=== PATIENT | male | born 1935 | race Caucasian/White ===

== ENCOUNTER → 2019-08-22 10:36 | Outpatient (CLI) | payer MEDICARE, OTHER, SELFPAY ==
--- NOTE | 2019-08-22 10:48 | RAD_ITS ---
STUDY: X-RAY - LEFT KNEE REASON FOR EXAM: Male, 84 years old. Left knee pain TECHNIQUE: 4 view(s) of the knee. COMPARISON: None. FINDINGS: There is demineralization of the visualized distal femur. There is demineralization of the tibia and fibula. Normal proximal tibiofibular articulation. There is mild degenerative arthrosis of the medial femorotibial compartment. There is mild degenerative arthrosis of the lateral femorotibial compartment. There is mild degenerative arthrosis of the patellofemoral articulation. There are atherosclerotic calcifications. RAD/Knee 4 or More Views IMPRESSION: Mild degenerative change no visualized fracture. Electronically Signed: Katia Gama MD at 18:01 EST Tel , Service support ,
[2019-08-22 12:51] LABS: Anion Gap 4 (5-15); BUN 11 mg/dL (7-18); BUN/Creat Ratio 11.2 RATIO (10-20); Calcium,Total 8.9 mg/dL (8.5-10.1); Chloride 106 mmol/L (98-107); Cholesterol 241 mg/dL (200); Creatinine, Serum 0.98 mg/dL (0.70-1.30); EST Glomerular Filtration Rate 78 mL/min (>60); Est Glom Filt Rate - Afr Amer 94 mL/min (>60); Glucose 90 mg/dL (74-106); High Density Lipoprotein 88 mg/dL; Potassium 4.1 mmol/L (3.5-5.1); Sodium Level 140 mmol/L (136-145); Triglycerides 67 mg/dL; Very Low Density Lipoprotein 13 mg/dL (5-40)
== END ==
PROVIDERS: PCP Family Medicine; Referring Provider Family Medicine; Visit Provider Family Medicine
DX: M79.605 Pain in left leg (principal); E78.00 Pure hypercholesterolemia, unspecified; Z13.1 Encounter for screening for diabetes mellitus; Z13.220 Encounter for screening for lipoid disorders
CPT/HCPCS: 36415; 73564; 80048; 80061

== ENCOUNTER 2021-02-20 20:50 | Inpatient (IN) | payer MEDICARE, OTHER, SELFPAY ==
[2021-02-20 20:51] VITALS: BP 129/67; PULSE 76; RESP 28; TEMP 36.2; O2SAT 87; BMI 21.2
[2021-02-20 20:56] VITALS: O2SAT 92
--- NOTE | 2021-02-20 21:56 | EKG12_ITS ---
Test Reason : SYNCOPE Blood Pressure : / mmHG Vent. Rate : 062 BPM Atrial Rate : 062 BPM P-R Int : 192 ms QRS Dur : 096 ms QT Int : 460 ms P-R-T Axes : 054 008 065 degrees QTc Int : 466 ms Normal sinus rhythm Normal ECG Confirmed by KRISTYN PEÑA, LINDA ([id number]), medical transcription editor CIELO MANCILLA ([id number]) on 02/22/2021 9:27:41 AM Referred By: DAVY Confirmed By:LINDA SIMONS MD
--- NOTE | 2021-02-20 21:56 | RAD_ITS ---
STUDY: X-RAY CHEST REASON FOR EXAM: Male, 85 years old. syncope TECHNIQUE: Single AP portable view of the chest. COMPARISON: None. FINDINGS: The lungs are clear and expanded. There is no demonstrated pleural abnormality. Normal size heart. Normal mediastinum and james. Normal visualized pulmonary arteries. Normal visualized aortic arch and descending thoracic aorta. Normal visualized thoracic spine. Normal visualized ribs, clavicles, and shoulders. There is no demonstrated abnormality of the visualized soft tissue structures of the upper abdomen. RAD/Chest 1 View (Portable) IMPRESSION: Normal x-ray examination of the chest. Electronically Signed: Florence Jeffries MD at 23:57 EDT Tel , Service support ,
--- NOTE | 2021-02-20 21:57 | EX.ED.DYSGE1 ---
HPI History of Present Illness Chief Complaint: Syncope Informant: patient Narrative Narrative: 85-year-old male presents to the emergency room following a syncopal episode. Patient had a dinner went outside to mow some lawn for his new puppy. He states that as he mowed he began to feel lightheaded. He states he was down by his shed and he states he passed out. His came up and found him. She states that he was pale and sweaty. He denies any chest pain or palpitations. He denies any shortness of breath he simply stated that he felt lightheaded. He does not believe he injured himself in the fall [facility] Medical History High cholesterol Allergy/AdvReac Type Severity Reaction Status Date / Time No Known Allergies Allergy Verified 02/20/21 20:54 Surgical History History of hernia surgery Social History (Updated 02/20/21 @ 21:[address] Dar Stevenson DO) Smoking Status: Never smoker substance use type: does not use ROS ROS ED Constitutional Constitutional ED: Denies chills or weight loss Eyes Eyes: Denies change in vision or diplopia ENT ENT ED: Denies ear pain, rhinorrhea or sore throat Cardiovascular Cardiovascular: Denies chest pain, orthopnea, palpitations or racing heartbeat Respiratory/Chest Respiratory/Chest: Denies cough, dyspnea or orthopnea Gastrointestinal Gastrointestinal: Denies abdominal pain, diarrhea, nausea or vomiting Genitourinary Genitourinary ED: Denies dysuria, hematuria or urinary frequency Musculoskeletal Musculoskeletal: Denies arthralgias or myalgias Integumentary Denies abscess or rash Neurologic Neurologic: Denies headache(s) or weakness Psychiatric Psychiatric: Denies anxiety, depression, suicidal ideation or suicidal thoughts Endocrine Endocrinology: Denies polydipsia, polyphagia or polyuria Allergic/Immunologic Allergic/Immunologic ED: Denies mouth swelling, tongue swelling or urticaria EXAM Physical Exam Const Vital Signs: 02/20/21 20:51 02/20/21 20:56 02/20/21 21:18 Temperature 97.2 F L Temperature Source Temporal Pulse Rate 76 Respiratory Rate 28 H Respiratory Effort Normal Non-Labored Blood Pressure 129/67 H Blood Pressure Mean 87 Pulse Ox 87 92 Oxygen Delivery Method Room Air Nasal Cannula Oxygen Flow Rate (L/min) 2 02/21/21 00:00 Temperature Temperature Source Pulse Rate 77 Respiratory Rate 20 H Respiratory Effort Blood Pressure 118/70 Blood Pressure Mean 86 Pulse Ox 100 Oxygen Delivery Method Oxygen Flow Rate (L/min) Positive well nourished and well developed General Appearance ED: well developed HEENT Reports normocephalic, head/scalp atraumatic and moist mucous membranes Eyes PERRL and EOMs intact bilaterally Neck no lymphadenopathy, supple and no JVD Resp normal respiratory effort and clear to auscultation bilaterally Cardio regular rate, regular rhythm and no murmurs GI normal to inspection, nondistended, normoactive bowel sounds and non-tender Palpation: soft Back/Spine no CVA tenderness and normal ROM Extremity normal to inspection General Extremety ED: Negative for edema General Extremity: Negative for edema Neuro oriented x3 and CN's II-XII intact bilaterally Sensorium / Orientation: alert Motor Exam: strength 5/5 throughout Psych mental status grossly normal Mood & Affect: Negative for depressed or tearful Skin no rashes or lesions noted and no wounds MDM MDM MDM Narrative Medical decision making narrative: Patient was watched on the monitor for over 3 hours. He has had no events. His EKG is a normal sinus rhythm. Initial troponin 13.1. D-dimer significantly elevated at 5.28 and so a CTA of the chest was ordered. Lab Data Attestation: I reviewed the patient's lab results. Labs: Laboratory Results - last 24 hr 02/20/21 02/20/21 02/20/21 20:30 20:30 22:20 WBC 9.7 RBC 4.42 L Hgb 13.4 Hct 40.3 MCV 91.2 MCH 30.3 MCHC 33.3 RDW Std Deviation 41.5 RDW Coeff of Brenda 12.4 Plt Count 328 MPV 10.4 Immature Gran % (Auto) 0.500 Neut % (Auto) 51.3 Lymph % (Auto) 35.2 [place] % (Auto) 8.7 Eos % (Auto) 3.3 Baso % (Auto) 1.0 Absolute Neuts (auto) 5.0 Absolute Lymphs (auto) 3.41 Nucleated RBC % 0 D-Dimer Quant (PE/DVT) 5.28 H* Sodium 135 L Potassium 3.0 L Chloride 100 Carbon Dioxide 21.0 Anion Gap 14 BUN 14 Creatinine 1.37 H Estim Creat Clear Calc 30.34 Est GFR (MDRD) Af Amer 64 Est GFR (MDRD) Non-Af 53 L BUN/Creatinine Ratio 10.2 Glucose 157 H Calcium 8.4 L Total Bilirubin 0.40 AST 21 ALT 19 Alkaline Phosphatase 89 Troponin I High Sens 13.1 Total Protein 6.9 Albumin 3.7 Globulin 3.2 Albumin/Globulin Ratio 1.2 Radiography Diagnostic Testing: Radiology Impression Chest X-Ray 02/20/21 21:56 IMPRESSION: Normal x-ray examination of the chest. Electronically Signed: Florence Jeffries MD at 23:57 EDT Tel , Service support , EKG Initial EKG: Attestation: I personally reviewed and interpreted this EKG as follows: Comments: EKG shows a normal sinus rhythm at a rate of 62 bpm. No concerning features of ACS or ectopy. No preexcitation or prolonged QT noted Discharge Plan Triage Chief Complaint: Syncope ED Provider: Dar Stevenson Dx/Rx/DC Orders Clinical Impression: Syncope and collapse Instructions: ED Fainting, Uncertain Cause Primary Care Provider: Giovany Villagran Referrals: Giovany Villagran MD [Primary Care Provider] - As soon as possible Disposition Disposition: Home, Self Care
[2021-02-20] MEDS: 0.9% Normal Saline 1,000 ML 1000 ML IV (22:11)
[2021-02-20 22:12] LABS: Absolute Lymphocyte Count 3.41 X10^3/uL (0.83-4.51); Eosinophil# 0.32 X10^3/uL; Eosinophils% 3.3 % (0-5); Hematocrit 40.3 % (40-54); Hemoglobin 13.4 g/dL (13.0-16.5); Lymphocyte # 3.41 X10^3/ul (0.83-4.51); Lymphocyte % 35.2 % (19-41); Mean Corp Hgb Conc 33.3 g/dL (32-36); Mean Corpuscular Hgb 30.3 pg (27.0-32.0); Mean Corpuscular Volume 91.2 fL (80-94); Mean Platelet Vol. 10.4 fl (6.2-12.0); Monocyte# 0.84 X10^3/uL; Monocyte% 8.7 % (0-10); NRBC Flagged by Analyzer 0 % (0-5); Neutrophil # 4.97 X10^3/uL (2.7-7.7); Neutrophil % 51.3 % (47-70); Platelet Count 328 K/mm3 (150-450); RBC Distribution Width CV 12.4 % (11.6-14.6); RBC Distribution Width SD 41.5 fl (35.1-43.9); Red Blood Count 4.42 M/mm3 (4.6-6.2); White Blood Count 9.7 K/mm3 (4.4-11.0)
[2021-02-20 22:22] LABS: ALB/GLOB Ratio 1.2 RATIO (0.9-2.4); AST(SGOT) 21 U/L (15-37); Alanine Aminotransfer ALT/SGPT 19 U/L (16-61); Albumin, Serum 3.7 g/dL (3.2-5.0); Alkaline Phosphatase 89 U/L (45-117); Anion Gap 14 (5-15); BUN 14 mg/dL (7-18); BUN/Creat Ratio 10.2 RATIO (10-20); Calcium,Total 8.4 mg/dL (8.5-10.1); Chloride 100 mmol/L (98-107); Creatinine, Serum 1.37 mg/dL (0.70-1.30); EST Glomerular Filtration Rate 53 mL/min (>60); Est Glom Filt Rate - Afr Amer 64 mL/min (>60); Estimated Creatinine Clearance 30.34 ml/min; Globulin 3.2 g/dL (2.2-4.2); Glucose 157 mg/dL (74-106); Protein, Total 6.9 g/dL (6.4-8.2); Sodium Level 135 mmol/L (136-145); Troponin-I HS 13.1 pg/mL (3.0-78.5)
[2021-02-20 23:32] LABS: D-Dimer Quantitative (DVT/PE) 5.28 FEU/ug/m (0.27-0.49)
--- NOTE | 2021-02-20 23:32 | CT_ITS ---
STUDY: CTA CHEST REASON FOR EXAM: Male, 85 years old. pulmonary embolism. Lightheaded, syncope while mowing, found laying behind mower, elevated d-dimer. RADIATION DOSAGE (If Supplied By Facility): CTDIvol = ( 7.7 ) mGy, DLP = ( 180.40 ) mGycm TECHNIQUE: The examination was performed with the intravenous administration of IV 75mL Isovue-370. Post-processing of the angiographic images was performed, with multiplanar reformation and 3D reconstruction. Individualized dose optimization techniques were used for this CT. COMPARISON: Portable chest x-ray 02/20/2021 FINDINGS: Normal enhancement of the main pulmonary artery and right and left pulmonary arteries. Normal enhancement of the bilateral peripheral pulmonary arteries. There is no demonstrated pulmonary embolism. There is calcification/tortuosity of the aortic arch, arch branches and descending thoracic aorta. There is no demonstrated aortic dissection. Normal heart and pericardium. There are calcifications of the coronary arteries. There are aortic valve calcifications. Normal mediastinum. Normal hilar regions. Normal visualized trachea and bronchi. The lungs are hyper expanded, with flattening of the hemidiaphragms. Nonspecific compression along the dependent lung parenchyma, mild anteroseptal thickening in the bilateral upper lung, and likely scarring with possible component of atelectasis in the bilateral bases. Normal pleura. Normal chest wall structures. Age appropriate osseous structures. There is a small hiatal hernia. The liver contains multiple low-attenuation lesions in the right hepatic lobe measuring 4.1 x 3.9 and 1.1 x 1.3 cm with near water density, in the left hepatic lobe 2.1 x 2.2 cm with near water density, there is peripheral increased vascularity along its superior aspect, and a subcentimeter water density lesion all of which are likely cysts. There is cholelithiasis. Small low-attenuation density 0.5 cm along the right lateral peritoneal reflection inferior to the liver. This is incompletely imaged. CT/CTA Chest W/WO Contrast IMPRESSION: No demonstrated pulmonary embolism , aneurysm, leak or arterial dissection. No pulmonary edema, congestive heart failure or confluent pneumonia. Scarring, possible mild atelectasis in the lung bases. Hepatic cysts suspected, correlation to previous assessment, and if needed ultrasound for detail recommended. Cholelithiasis, no gallbladder inflammation. Nodular density in the lateral right abdominal peritoneum of unclear etiology. Correlation with prior assessment for stability of findings performed elsewhere or follow-up recommended. Electronically Signed: Cristiana Patterson MD at 0:28 EDT , Service support ,
[2021-02-21] VITALS (23 sets, daily range): BP systolic 91–140; BP diastolic 47–98; PULSE 57–85; RESP 12–21; TEMP 36.4–37.2; O2SAT 93–100; BMI 20.5
[2021-02-21] MEDS: Potassium Chloride Oral Tablet 20 MEQ 40 MEQ PO (00:11)
--- NOTE | 2021-02-21 03:03 | EKG12_ITS ---
Test Reason : NSTEMI ADMIT Blood Pressure : / mmHG Vent. Rate : 067 BPM Atrial Rate : 067 BPM P-R Int : 172 ms QRS Dur : 078 ms QT Int : 392 ms P-R-T Axes : 065 007 081 degrees QTc Int : 414 ms Normal sinus rhythm Possible LAE Confirmed by CEZAR PEÑA, DALLIN ([id number]), social media editor CIELO MANCILLA ([id number]) on 02/23/2021 10:53:42 AM Referred By: PO Confirmed By:DALLIN ROBB MD
--- NOTE | 2021-02-21 03:20 | PCM.HP.STD ---
HPI - General General Date of Admission: 02/21/21 Date of Service: 02/21/21 Chief Complaint: Syncope HPI Narrative JASWANT DAVIS, is a 85 M with no significant past medical history was brought to ER by EMS for syncope. Patient was mowing in the backyard then he felt warm sensation, nausea and then passed out. He turned off motor of [employer] and his calling his name before passing out. On waking up, patient denies headache and injury but was feeling weak. He might have passed out for few minutes. He denies chest pain, pressure/tightness, shortness of breath. He further said he passed out many years ago when he was in high school wrestling. He denies cardiac disease including coronary artery disease, stents/MS, CHF. He vaguely remembers that many years ago one physician said he has murmur. He denies history of smoking or chronic lung disease. In ER, EKG shows normal sinus rhythm at 96 bpm. QTc 466 ms. First high-sensitivity troponin was normal but second high, 243. D-dimer is elevated but CT angiogram negative for acute cardiopulmonary abnormality. Incidental hepatic cyst and cholelithiasis with no gallbladder inflammation found. [facility] Medical History High cholesterol Allergy/AdvReac Type Severity Reaction Status Date / Time No Known Allergies Allergy Verified 02/21/21 02:52 Surgical History History of hernia surgery Social History Smoking Status: Never smoker substance use type: does not use ROS ROS Narrative Constitutional: Reports mild weakness HEENT: Reports systems reviewed and no addt'l complaints, except as documented Respiratory/Chest: Denies chest pain, shortness of breath at rest or with exertion Gastrointestinal: Denies coffee ground emesis, hematemesis or vomiting Genitourinary: Denies burning urination or new urinary tract symptoms Musculoskeletal: Reports joint pain and limited range of motion Neurologic: Denies seizure-like activity skin: No ulcer. No rash Endocrinology: Reports systems reviewed and no addt'l complaints, except as documented Hematologic/Lymphatic: Reports systems reviewed and no addt'l complaints, except as documented Rest 12 ROS are negative except as mentioned in HPI Vital Signs Vital Signs Vital Signs: 02/20/21 20:51 02/20/21 20:56 02/20/21 21:18 Temperature 97.2 F L Temperature Source Temporal Pulse Rate 76 Respiratory Rate 28 H Respiratory Effort Normal Non-Labored Blood Pressure 129/67 H Blood Pressure Mean 87 Blood Pressure Source Blood Pressure Position Blood Pressure Location Pulse Ox 87 92 Oxygen Delivery Method Room Air Nasal Cannula Oxygen Flow Rate (L/min) 2 02/21/21 00:00 02/21/21 02:00 02/21/21 02:18 Temperature 97.5 F L Temperature Source Temporal Pulse Rate 77 74 Respiratory Rate 20 H 21 H Respiratory Effort Blood Pressure 118/70 131/64 H 131/64 H Blood Pressure Mean 86 86 86 Blood Pressure Source Blood Pressure Position Blood Pressure Location Pulse Ox 100 98 Oxygen Delivery Method Oxygen Flow Rate (L/min) 02/21/21 03:00 Temperature 98.6 F Temperature Source Oral Pulse Rate 77 Respiratory Rate 18 Respiratory Effort Blood Pressure 140/65 H Blood Pressure Mean 90 Blood Pressure Source Monitor Blood Pressure Position Semi-Fowlers Blood Pressure Location Right Arm Pulse Ox 96 Oxygen Delivery Method Nasal Cannula Oxygen Flow Rate (L/min) 2 Weight Weight: 111 lb 15.917 oz Body Mass Index (BMI) 20.5 Physical Exam Narrative General: Alert, Oriented x3, Cooperative HEENT: Atraumatic, PERRLA, EOMI, Normocephalic Oral: No Gingival or Mucosal Lesions/ Ulcerations Neck: Supple, No JVD, Negative Carotid Bruits Lungs: Air entry equal in bilateral lung bases. No crepitation/rhonchi Cardiovascular: Regular rate, Regular Rhythm, Normal S1, Normal S2, ESM, grade 4/6 with carotid radiation, Abdomen: Bowel Sounds Present, Soft, Non Tender, Non-Distended : No renal angle tenderness. No suprapubic tenderness. Extremities: No edema, Capillary Refill Less than 3 Seconds Skin: No rashes, No breakdown Musculoskeletal: No Tenderness to Palpation of Joints or Extremities Neurological: Cranial nerves II-XII grossly intact, DTR 2+/4 and Symmetrical, Neuro grossly intact Psych/Mental Status: Normal Affect, Appropriate. Results Lab / Micro Data Result Diagrams: 02/20/21 20:30 02/20/21 20:30 Labs: Laboratory Results - last 24 hr 02/20/21 20:30: WBC 9.7, RBC 4.42 L, Hgb 13.4, Hct 40.3, MCV 91.2, MCH 30.3, MCHC 33.3, RDW Std Deviation 41.5, RDW Coeff of Brenda 12.4, Plt Count 328, MPV 10.4, Immature Gran % (Auto) 0.500, Neut % (Auto) 51.3, Lymph % (Auto) 35.2, [place] % (Auto) 8.7, Eos % (Auto) 3.3, Baso % (Auto) 1.0, Absolute Neuts (auto) 5.0, Absolute Lymphs (auto) 3.41, Nucleated RBC % 0 02/20/21 20:30: Sodium 135 L, Potassium 3.0 L, Chloride 100, Carbon Dioxide 21.0, Anion Gap 14, BUN 14, Creatinine 1.37 H, Estim Creat Clear Calc 30.34, Est GFR (MDRD) Af Amer 64, Est GFR (MDRD) Non-Af 53 L, BUN/Creatinine Ratio 10.2, Glucose 157 H, Calcium 8.4 L, Total Bilirubin 0.40, AST 21, ALT 19, Alkaline Phosphatase 89, Troponin I High Sens 13.1, Total Protein 6.9, Albumin 3.7, Globulin 3.2, Albumin/Globulin Ratio 1.2 02/20/21 22:20: D-Dimer Quant (PE/DVT) 5.28 H* 02/21/21 00:03: Troponin I High Sens 243.0 H* Radiology Impression Chest X-Ray 02/20/21 21:56 IMPRESSION: Normal x-ray examination of the chest. Electronically Signed: Florence Jeffries MD at 23:57 EDT Tel , Service support , Chest CTA 02/20/21 23:32 IMPRESSION: No demonstrated pulmonary embolism , aneurysm, leak or arterial dissection. No pulmonary edema, congestive heart failure or confluent pneumonia. Scarring, possible mild atelectasis in the lung bases. Hepatic cysts suspected, correlation to previous assessment, and if needed ultrasound for detail recommended. Cholelithiasis, no gallbladder inflammation. Nodular density in the lateral right abdominal peritoneum of unclear etiology. Correlation with prior assessment for stability of findings performed elsewhere or follow-up recommended. Electronically Signed: Cristiana Patterson MD at 0:28 EDT , Service support , Assessment & Plan Assessment/Plan (1) Syncope and collapse: PLAN: Is 85-year-old gentleman admitted with syncope 1. Syncope most probably secondary to non-STEMI, precipitated by aortic stenosis: Patient is not aware of aortic stenosis. Admit in PCU. Serial troponin enzymes. Repeat EKG shows normal sinus rhythm with no ST-T abnormalities. 2D echo is ordered. Medical Clinic Manager Dr. Zaidi has been consulted. Orthostatic blood pressure. I think the aortic stenosis might be precipitating factor of syncope and non-STEMI. Denies history of hypertension, dyslipidemia, smoking or the respiratory. His father had MS in coronary artery disease.PAUL risk score is 2. Started on baby aspirin, high intensity statin, low-dose metoprolol and lisinopril with holding parameters. Further as recommended by digital circuit designer. TSH and fasting blood profile ordered. 2. Patient has good exercise capacity and can walk one flight of stairs and plays 20 hole golf. VT prophylaxis moderate risk: Lovenox 40 subcu daily Living will/advanced directive/end of life care: Patient does have living will or advanced directive. His is power of county attorney for health. After discussion of benefits/risks procedures involved with full code, DNR CC arrest and DNR CC, the patient opted for DNR-CC Arrest with no intubation Patient does not want artificial life support including intubation, tube feed, ventilator and/chest compression, central venous catheter, vasopressor and DC shock if needed Total time spent in [id number] encounter in discussion of advanced directive 16 minutes. Charges/Coding Visit Charges Inpatient E&M: 52068 Init Hosp L3 Procedures Hospitalists Procedures: 35785 Advncd Care Plan 30 Min
[2021-02-21] MEDS: 0.9% Normal Saline 1,000 ML 100 ML IV (03:35)
[2021-02-21] MEDS: 0.9% Saline Lock 10 ML Syringe IV (03:36)
[2021-02-21 04:19] LABS: Magnesium 1.9 mg/dL (1.6-2.6); Troponin-I HS 273.4 pg/mL (3.0-78.5)
[2021-02-21 04:23] LABS: Anion Gap 9 (5-15); BUN 14 mg/dL (7-18); BUN/Creat Ratio 14.3 RATIO (10-20); Calcium,Total 8.1 mg/dL (8.5-10.1); Chloride 103 mmol/L (98-107); Cholesterol 209 mg/dL (200); Creatinine, Serum 0.98 mg/dL (0.70-1.30); EST Glomerular Filtration Rate 78 mL/min (>60); Est Glom Filt Rate - Afr Amer 94 mL/min (>60); Estimated Creatinine Clearance 41.04 ml/min; Glucose 111 mg/dL (74-106); High Density Lipoprotein 72 mg/dL; Phosphorus 3.1 mg/dL (2.5-4.9); Potassium 4.5 mmol/L (3.5-5.1); Sodium Level 136 mmol/L (136-145); Thyroid Stim Hormone (TSH) 0.71 uIU/mL (0.358-3.74); Triglycerides 63 mg/dL; Very Low Density Lipoprotein 13 mg/dL (5-40)
[2021-02-21 04:31] LABS: CPK Total, Creatine Kinase 90 U/L (39-308)
--- NOTE | 2021-02-21 05:55 | ECHOD_ITS ---
Reason For Study: SYNCOPE Procedure This was a 2D Doppler, Color Flow transthoracic echocardiogram. Exam performed portable in patient room. Left Ventricle Normal LV size. Left ventricular systolic function is normal. The estimated ejection fraction is 65 %. Stage 2 diastolic dysfunction. No regional wall motion abnormalities noted. Right Ventricle Normal RV size. Normal systolic function. Atria Normal left atrium. Normal right atrium. Mitral Valve Normal mitral valve. Mild-Moderate (1-2+) eccentric mitral valve insufficiency. Tricuspid Valve Normal tricuspid valve. Mild (1+) tricuspid valve insufficiency. Pulmonary artery systolic pressure is 34 mmHg. Aortic Valve Trisinus/trileaflet aortic valve. Peak aortic valve gradient 85 mmHg. Mean aortic valve gradient 56 mmHg. Severe aortic stenosis. Mild (1+) aortic valve insufficiency. Pulmonic Valve Normal pulmonic valve. Great Vessels Normal aortic root. The pulmonary artery is normal size. Normal inferior vena cava. Pericardium/Pleural No pericardial effusion. MMode/2D Measurements & Calculations LVIDd: 3.5 cm IVSd: 1.1 cm LVOT diam: 2.0 cm LVIDs: 2.4 cm LVPWd: 1.1 cm LVOT area: 3.2 cm2 RVDd: 3.5 cm FS: 31.5 % Ao root diam: 3.1 cm LAV(MOD-bp): 40.8 ml LVAd ap4: 21.8 cm2 LAV(MOD-bp) Indexed: 27.3 ml/m2 LVLd ap4: 7.3 cm LAV(MOD-sp2): 35.2 ml EDV(MOD-sp4): 53.1 ml LAV(MOD-sp4): 45.1 ml EDV(sp4-el): 55.0 ml LVAs ap4: 11.1 cm2 LVLs ap4: 6.4 cm ESV(MOD-sp4): 16.8 ml ESV(sp4-el): 16.4 ml EF(MOD-sp4): 68.4 % EF(sp4-el): 70.2 % LVAd ap2: 27.0 cm2 SV(MOD-sp4): 36.3 ml SV(MOD-sp2): 41.6 ml LVLd ap2: 8.2 cm EDV(MOD-sp2): 72.1 ml EDV(sp2-el): 75.4 ml LVAs ap2: 14.7 cm2 LVLs ap2: 6.6 cm ESV(MOD-sp2): 30.4 ml ESV(sp2-el): 27.5 ml EF(MOD-sp2): 57.8 % SV(sp4-el): 38.6 ml LA dimension(2D): 4.0 cm LA A4 area: 17.0 cm2 RA A4 area: 12.8 cm2 Time Measurements MV dec time: 0.19 sec Doppler Measurements & Calculations MV E max alex: 92.5 cm/sec Lat Peak E' Alex: 5.4 cm/sec Med Peak E' Alex: 6.2 cm/sec MV A max alex: 103.9 cm/sec E/E' lat: 17.3 E/E' med: 14.9 MV E/A: 0.89 Ao V2 max: 460.6 cm/sec AI max alex: 287.8 cm/sec LV V1 max: 142.8 cm/sec Ao max P.0 mmHg AI max P.2 mmHg LV V1 max P.2 mmHg Ao V2 mean: 362.1 cm/sec LV V1 mean P.7 mmHg Ao mean P.6 mmHg AI dec slope: 243.9 cm/sec2 LV V1 mean: 103.1 cm/sec Ao V2 VTI: 115.0 cm AI P1/2t: 345.6 msec LV V1 VTI: 35.6 cm YESSI(I,D): 1.00 cm2 YESSI(V,D): 1.0 cm2 SV(LVOT): 114.9 ml PA V2 max: 108.9 cm/sec TR max alex: 276.9 cm/sec TR max P.8 mmHg ECHO/Echo Complete Interpretation Summary Normal LV size. Left ventricular systolic function is normal. The estimated ejection fraction is 65 %. Stage 2 diastolic dysfunction. Mean aortic valve gradient 56 mmHg. Mild (1+) aortic valve insufficiency. Peak aortic valve gradient 85 mmHg. Severe aortic stenosis. Ordering Physician: Carlos Benton Referring Physician: ARSLAN CASTANEDA Performed By: Naya Combs, MAGDI, RVT
--- NOTE | 2021-02-21 07:25 | PCM.CONS.C ---
Assessment & Plan Assessment/Plan (1) Syncope and collapse: PLAN: He had an episode of syncope the etiology of which is not totally clear. He does have a murmur suggestive of aortic stenosis and with effort during mowing this could have precipitated this. His cardiac enzymes were also noted to be mildly abnormal and this may need to be further investigated. I would await the echocardiographic evaluation and then further recommendations will be made. (2) Aortic stenosis: PLAN: He does have a murmur suggestive of aortic stenosis which appears to be at least moderate. An echocardiogram will be performed to assess his ventricular function as well as look at the aortic valve integrity and depending on the findings further recommendations will be made. I have discussed this with him he understands the current plan of action. Thank you for allowing me to participate in the care of your patient. Please don't hesitate to call if any issues arise. Addendum at 1:30 PM. Patient underwent a cardiac catheterization which demonstrated minimal obstructive coronary disease but confirmed severe aortic stenosis. His echocardiogram also confirmed severe aortic stenosis. Based on the above findings I would recommend that we observe him overnight and discharge him in the a.m. to be set up for an aortic valve replacement via the TAVR approach. I would communicate with the physicians in the tertiary care center. Would recommend discontinuing the TUNG inhibitor and beta-salvatore. HPI Consult Data Date of Consult: 02/21/21 HPI Narrative HPI Narrative: JASWANT DAVIS, is a 85 M who presents to the emergency room with a syncopal episode. He apparently has been in a stable state of health until yesterday when while mowing his lawn he suddenly started feeling dizzy and apparently passed out. He is not exactly sure of the duration of time that he passed out. He denies any previous such episodes. He denies any angina no shortness of breath no paroxysmal nocturnal dyspnea or pedal edema he is not on any medications and has been otherwise fit. He plays golf. He was seen in the emergency room and his EKG did not demonstrate any significant abnormalities. D-dimer was elevated and he underwent a CT angio of his chest which did not demonstrate any evidence of pulmonary embolism. He was however noted to be hypokalemic and his potassium has been corrected. Cardiac enzymes were mildly elevated. FORMERLY [facility], 1928–1983 Medical History (Updated 02/21/21 @ 13:32 by Rolanda Hilliard) High cholesterol Allergy/AdvReac Type Severity Reaction Status Date / Time No Known Allergies Allergy Verified 02/21/21 02:52 Surgical History (Updated 02/21/21 @ 13:32 by Rolanda Hilliard) History of hernia surgery History of left heart catheterization (02/21/21) Social History Smoking Status: Never smoker substance use type: does not use ROS Constitutional Constitutional: Denies fever(s) or weight loss Eyes Eyes: Reports as per HPI ENT HEENT: Reports as per HPI Cardiovascular Cardiovascular: Reports other Respiratory/Chest Respiratory/Chest: Reports other Gastrointestinal Gastrointestinal: Denies change in bowel habits, nausea, vomiting or weight changes Genitourinary Genitourinary: Denies difficulty urinating Musculoskeletal Musculoskeletal: Denies joint stiffness or muscle weakness Integumentary Integumentary: Denies lesions Neurologic Neurologic: Reports dizziness and syncope Psychiatric Psychiatric: Denies anxiety Endocrine Endocrinology: Denies excessive sweating or fatigue Hematologic/Lymphatic Hematologic/Lymphatic: Denies anemia Allergic/Immunologic Allergic/Immunologic: Denies seasonal rhinorrhea Physical Exam Const oriented x3 and healthy appearing Orientation / Consciousness: awake HEENT normocephalic Eyes PERRL and conjunctivae normal Neck supple, no JVD and no carotid bruits Chest inspection of chest normal Resp normal respiratory effort and clear to auscultation bilaterally Cardio regular rate Palpation: normal PMI Rate: regular rate Rhythm: regular rhythm Heart Sounds: S1 normal, S2 normal and murmur systolic IV/ harsh left sternal border Peripheral Pulses: pulses 2+ throughout GI normal to inspection, nondistended, normoactive bowel sounds Extremity normal to inspection and no clubbing, cyanosis or edema Psych mental status grossly normal Objective Data Vital Signs: Vital Signs Temp Pulse Resp BP Pulse Ox 98.6 F 67 18 109/74 96 02/21/21 03:00 02/21/21 03:02 02/21/21 03:00 02/21/21 03:02 02/21/21 03:00 Oxygen Flow Rate (L/min) 2 Oxygen Delivery Method Nasal Cannula Weight: 111 lb 15.917 oz Body Mass Index (BMI) 20.5 Intake & Output: Intake and Output for Last 24 Hours 02/19/21 02/20/21 02/21/21 23:59 23:59 23:59 Intake Total 1000 / 1000 Balance 1000 / 1000 Lab / Micro Data Result Diagrams: 02/20/21 20:30 02/21/21 03:14 Labs: Laboratory Results - last 24 hr 02/20/21 20:30: WBC 9.7, RBC 4.42 L, Hgb 13.4, Hct 40.3, MCV 91.2, MCH 30.3, MCHC 33.3, RDW Std Deviation 41.5, RDW Coeff of Brenda 12.4, Plt Count 328, MPV 10.4, Immature Gran % (Auto) 0.500, Neut % (Auto) 51.3, Lymph % (Auto) 35.2, Newton % (Auto) 8.7, Eos % (Auto) 3.3, Baso % (Auto) 1.0, Absolute Neuts (auto) 5.0, Absolute Lymphs (auto) 3.41, Nucleated RBC % 0 02/20/21 20:30: Sodium 135 L, Potassium 3.0 L, Chloride 100, Carbon Dioxide 21.0, Anion Gap 14, BUN 14, Creatinine 1.37 H, Estim Creat Clear Calc 30.34, Est GFR (MDRD) Af Amer 64, Est GFR (MDRD) Non-Af 53 L, BUN/Creatinine Ratio 10.2, Glucose 157 H, Calcium 8.4 L, Total Bilirubin 0.40, AST 21, ALT 19, Alkaline Phosphatase 89, Troponin I High Sens 13.1, Total Protein 6.9, Albumin 3.7, Globulin 3.2, Albumin/Globulin Ratio 1.2 02/20/21 22:20: D-Dimer Quant (PE/DVT) 5.28 H* 02/21/21 00:03: Troponin I High Sens 243.0 H* 02/21/21 03:14: Magnesium 1.9, Troponin I High Sens 273.4 H* 02/21/21 03:14: Sodium 136, Potassium 4.5, Chloride 103, Carbon Dioxide 24.0, Anion Gap 9, BUN 14, Creatinine 0.98, Estim Creat Clear Calc 41.04, Est GFR (MDRD) Af Amer 94, Est GFR (MDRD) Non-Af 78, BUN/Creatinine Ratio 14.3, Glucose 111 H, Calcium 8.1 L, Phosphorus 3.1, Triglycerides 63, Cholesterol 209 H, LDL Cholesterol 124, VLDL Cholesterol 13, HDL Cholesterol 72, TSH 0.71 02/21/21 03:14: Total Creatine Kinase 90 Cardiology Labs/Tests 02/20/21 20:30: WBC 9.7, RBC 4.42 L, Hgb 13.4, Hct 40.3, MCV 91.2, MCH 30.3, MCHC 33.3, Plt Count 328, MPV 10.4, Immature Gran % (Auto) 0.500, Neut % (Auto) 51.3, Lymph % (Auto) 35.2, Newton % (Auto) 8.7, Eos % (Auto) 3.3, Baso % (Auto) 1.0, Absolute Neuts (auto) 5.0, Nucleated RBC % 0 02/20/21 20:30: Sodium 135 L, Potassium 3.0 L, Chloride 100, Carbon Dioxide 21.0, Anion Gap 14, BUN 14, Creatinine 1.37 H, Est GFR (MDRD) Af Amer 64, Est GFR (MDRD) Non-Af 53 L, BUN/Creatinine Ratio 10.2, Glucose 157 H, Calcium 8.4 L, Total Bilirubin 0.40 02/20/21 22:20: D-Dimer Quant (PE/DVT) 5.28 H* 02/21/21 03:14: Magnesium 1.9 02/21/21 03:14: Sodium 136, Potassium 4.5, Chloride 103, Carbon Dioxide 24.0, Anion Gap 9, BUN 14, Creatinine 0.98, Est GFR (MDRD) Af Amer 94, Est GFR (MDRD) Non-Af 78, BUN/Creatinine Ratio 14.3, Glucose 111 H, Calcium 8.1 L, Phosphorus 3.1, Triglycerides 63, Cholesterol 209 H, LDL Cholesterol 124, VLDL Cholesterol 13, HDL Cholesterol 72 Rhythm: EKG: ECHO: Stress Test: Cardiac Cath: PCI: CT Surgery: Holter monitor: EPS: PPM: CXR: Chest CT Scan: Radiography Diagnostic Testing: Radiology Impression Chest X-Ray 02/20/21 21:56 IMPRESSION: Normal x-ray examination of the chest. Electronically Signed: Florence Jeffries MD at 23:57 EDT Tel , Service support , Chest CTA 02/20/21 23:32 IMPRESSION: No demonstrated pulmonary embolism , aneurysm, leak or arterial dissection. No pulmonary edema, congestive heart failure or confluent pneumonia. Scarring, possible mild atelectasis in the lung bases. Hepatic cysts suspected, correlation to previous assessment, and if needed ultrasound for detail recommended. Cholelithiasis, no gallbladder inflammation. Nodular density in the lateral right abdominal peritoneum of unclear etiology. Correlation with prior assessment for stability of findings performed elsewhere or follow-up recommended. Electronically Signed: Cristiana Patterson MD at 0:28 EDT , Service support ,
--- NOTE | 2021-02-21 11:30 | CASEMGMT ---
RN COLBY Face to Face with patient for initial transition planning/care coordination assessment. RN CM introduced self and role at [facility]. Patient lying in bed, alert and oriented. Patient willing to participate in assessment and is able to answer all questions appropriately. Care providers, pharmacy, and demographics verified. Patient wishes to discharge home, denies need for home health at this time. Patient states he has no further needs or concerns at this time. CM to follow for discharge planning needs that may arise. PCP: Tyshawn Specialists: none Preferred Pharmacy: [facility] Retail Insurance: [facility], [employer] Prescription Benefit: yes Living Will/HPOA: yes, Luis Ji LNOK: Living Arrangements: Patient lives with in a mobile home with 4 steps and railing to enter the home. Patient states he is independent at home. Transportation: self, DME/HHC: Patient denies DME at home. No previous SNF or HHC Disposition Plan: Patient to discharge home with family support and follow-up plans in place. Patricia ALCANTARA, RN, CM
--- NOTE | 2021-02-21 12:16 | NURSING ---
Report called to KURT Minor in skilled laborer at 12:15
--- NOTE | 2021-02-21 13:32 | CL.D_ITS ---
Patient Name: JASWANT DAVIS Study Date: 02/21/2021 Performing: Ramiro Jones MD Ht: 62 inches 157 cm : 1935 Wt: 112.6 lbs 51 kg Age: 85 Gender: male BSA: 1.49 PROCEDURE(S) PERFORMED [id number]/LV CLINICAL PROFILE AND INDICATIONS Indications: Valvular Disease Heart Failure: None Stress/Imaging Stress/Image Study Performed: No CAD Presentations: Symptom unlikely to be ischemic. CONCLUSIONS Non obstructive coronary arteries Aortic Valve Stenosis- Severe Aortic Valve Calcification- Severe RECOMMENDATIONS TAVR DESCRIPTION OF PROCEDURE The patient arrived to the procedure lab. The risks and benefits of the procedure as well as a full d escription of our services here and current unavailability of surgical backup were fully explained to the patient and/or their significant other prior to the catheterization. The Timeout was completed, verifying the correct patient and procedure. The patient's procedural site was prepped and draped in the usual fashion. Local anesthetic was given subcutaneously to right radial region with Lidocaine 2% . Using a modified Seldinger technique, arterial access was obtained via the right radial artery, a 6 Fr sheath was inserted. Left Coronary Artery selective angiography was performed in multiple views u sing a 5 Fr. 4.0 Cable catheter. Right Coronary Artery selective angiography was then performed in mu ltiple views using a 5 Fr. 4.0 Cable catheter. Left Ventriculography was performed in TAVERAS projection using a 5 Fr. Pigtail catheter.The arterial sheath was pulled and a TR Band was applied for hemostasis 11cc air CORONARY ANGIOGRAPHY DOMINANCE: Right Dominant LEFT HEART ASSESSMENT Left Ventricular Ejection Fraction: by LV Gram 65 % Normal LV wall motion Normal Left Ventricular systolic function LEFT MAIN: Mild calcification, Mild luminal irregularities LEFT ANTERIOR DESCENDING ARTERY: Mild luminal irregularities less than 30% CIRCUMFLEX ARTERY: Mild luminal irregularities less than 30% RIGHT CORONARY ARTERY: Mild luminal irregularities less than 30% VALVE FINDINGS: Aortic Valve Stenosis - severe Aortic Valve Insufficiency: Grade 1 COMPLICATIONS No Complications PROCEDURE MEDICATIONS Versed 1 mg IV Fentanyl 25 mcg IV Oxygen: 2 L/min via nasal cannula Baby Aspirin (81mg) 1 Tabs PO @ 02/21/2021 12:45:45 Heparin given IA 02/21/2021 13:06:50 IV Fluids: .9 NaCl IV started @ 150 ml/hr 02/21/2021 12:58:11 SUMMARY OF HEMODYNAMIC DATA Time AIR REST ECG 12:42:05 AO 97/52 (68) SA 13:08:25 LV 167/16, 34 13:14:11 LV 160/18, 33 13:14:20 LV 172/21, 36 13:15:16 LVp 175/25, 41 13:15:28 AOp 74/45 (57) 13:15:33 AO 84/50 (66) 13:15:53 Signed By Ramiro Jones MD On 02/21/2021 1:31:37 PM Ramiro Jones MD
[2021-02-21] MEDS: 0.9% Normal Saline 1,000 ML 60 ML IV (13:55)
--- NOTE | 2021-02-21 19:45 | NURSING ---
Emergency pandemic charting started at 1943
[2021-02-21] MEDS: Atorvastatin Calcium 40 MG Tablet PO (22:08)
[2021-02-22] VITALS (8 sets, daily range): BP systolic 42–110; BP diastolic 34–68; PULSE 35–82; RESP 0–18; TEMP 36.9; O2SAT 94–97
[2021-02-22] MEDS: 0.9% Normal Saline 1,000 ML 60 ML IV (05:56)
--- NOTE | 2021-02-22 07:46 | PN.CARD_ITS ---
Subjective Subjective Patient seen and evaluated. Had uneventful night. Objective Data Vital Signs: Vital Signs Temp Pulse Resp BP Pulse Ox 98.5 F 73 18 100/61 95 02/22/21 02:55 02/22/21 03:00 02/22/21 02:55 02/22/21 02:55 02/22/21 07:34 Oxygen Flow Rate (L/min) 2 Oxygen Delivery Method Nasal Cannula Weight: 111 lb 15.917 oz Body Mass Index (BMI) 20.5 Intake & Output: Intake and Output for Last 24 Hours 02/20/21 02/21/21 02/22/21 23:59 23:59 23:59 Intake Total 1000 / 1000 1480 / 1720 1321 / 1321 Output Total 200 / 200 Balance 1000 / 1000 1480 / 1520 1121 / 1121 Lab / Micro Data Result Diagrams: 02/20/21 20:30 02/21/21 03:14 Cardiology Labs/Tests Rhythm: EKG: ECHO: Stress Test: Cardiac Cath: PCI: CT Surgery: Holter monitor: EPS: PPM: CXR: Chest CT Scan: Radiography Diagnostic Testing: Radiology Impression Echocardiogram 02/21/21 05:55 Interpretation Summary Normal LV size. Left ventricular systolic function is normal. The estimated ejection fraction is 65 %. Stage 2 diastolic dysfunction. Mean aortic valve gradient 56 mmHg. Mild (1+) aortic valve insufficiency. Peak aortic valve gradient 85 mmHg. Severe aortic stenosis. Ordering Physician: Carlos Benton Referring Physician: ARSLAN CASTANEDA Performed By: Naya Combs, MAGDI, RVT Physical Exam Const oriented x3 and healthy appearing Orientation / Consciousness: awake HEENT normocephalic Eyes PERRL and conjunctivae normal Neck supple, no JVD and no carotid bruits Chest inspection of chest normal Resp normal respiratory effort and clear to auscultation bilaterally Cardio regular rate Palpation: normal PMI Rate: regular rate Rhythm: regular rhythm Heart Sounds: S1 normal, S2 normal and murmur systolic IV/ harsh left sternal border Peripheral Pulses: pulses 2+ throughout GI normal to inspection, nondistended, normoactive bowel sounds Extremity normal to inspection and no clubbing, cyanosis or edema Psych mental status grossly normal Assessment & Plan Assessment/Plan (1) Syncope and collapse: PLAN: He had an episode of syncope . It is likely that the above was secondary to his severe aortic stenosis. (2) Aortic stenosis: PLAN: He does have severe aortic stenosis with minimal coronary artery disease. His syncope was likely from the severe aortic stenosis. I would recommend that he undergo a TAVR assessment in a tertiary care facility. The above will be arranged as an outpatient. I explained this to the patient he understands and agrees to proceed. He can be discharged home for outpatient follow-up.
--- NOTE | 2021-02-22 08:32 | NURSING ---
Assessment of patient completed with vitals. Patient stable. Took patient to bathroom. On the way back patient stated he was feeling dizzy and became diaphoretic after getting back into bed. Pt then became unresponsive, hypotensive, bradycardic. Called [facility] TESTER. Time of @ 0859. See Code Blue documentation.
--- NOTE | 2021-02-22 08:40 | CASEMGMT ---
Rapid response was called. SW responded to the room and was asked to call patient's . SW called patient's . Introduced self and asked if she could come to the hospital right away as the physician would like to talk with her. SW told her to please be safe. SW notified physician that patient's is on her way in to [facility]. Lizeth Conteh HEAD CONCIERGE CORY
[2021-02-22 08:56] LABS: Bedside Glucose 66 mg/dL (70-110)
--- NOTE | 2021-02-22 08:58 | PCM.PN.BLA ---
Progress Note A rapid response was called on patient who was unresponsive. He had gone to the bathroom, come back, complained of not feeling well, and then he became unresponsive. His blood pressure was said to be 110 earlier on. Patient was found without a pulse, CPR started. CODE STATUS found not to be DNR CCA. CPR stopped. Patient blood sugar was 66, amp of D50 given. Patient's blood pressure was in the 40s. He was having Shawn-Singletary breathing. Increased his oxygen from 2 L to 15 L. Cardiology informed; seen patient at the bedside. 1 mg epinephrine and 1mg atropine given. Time of : 8:59 am
--- NOTE | 2021-02-22 09:50 | NURSING ---
Per life bank request, patient received approximately 300ml of 0.9% normal saline during last hour of life.
--- NOTE | 2021-02-22 10:30 | PCM.DEATH ---
Preliminary Cause of Preliminary Cause of Preliminary Cause of : Acute sudden cardiac Severe aortic valve stenosis Date of Admission: 02/21/21 Date of : 02/22/21 Principle Diagnosis Sudden cardiac secondary to acute severe aortic stenosis Problem List: Active and Suspected Problems (Updated 02/22/21 @ 07:45 by Rolanda Hilliard) Syncope and collapse (Acute) Acute hypokalemia - resolved Acute NSTEMI Hospital Course 85-year-old male with nonsignificant past medical history who presented after syncopal episode whilst mowing his lawn. He felt suddenly dizzy and passed out. He denied any previous episodes of such. He denied any chest pain or dyspnea. His admitting EKG was unremarkable in the ED. His D-dimer was elevated and he underwent CTA of the chest which was negative for acute PE. Patient had hypokalemia that was replaced. His cardiac enzymes were slightly elevated. Cardiology was consulted. Patient underwent cardiac catheterization as well as 2D echo to confirm severe aortic stenosis and nonobstructive coronary artery disease. The plan was for discharge to a tertiary center for TAVR. Patient was kept overnight. No acute complaints. His vitals had remained stable. His blood pressure was 110 systolic in the morning. He walked to the bathroom and back and suddenly felt very dizzy. He sat down and became unresponsive. Rapid response was called. Patient blood pressure was 44 systolic. His blood sugar was 66. This was treated with D50 following. He was kept on IV fluids wide open. Patient subsequently lost his pulse and had Shawn-Singletary breathing at time of the rapid response. A code was not called and CPR was not started because his CODE STATUS was a DNR CCA no intubation. Time of was 0849 HRS, not 0859 HRS. Assessment & Plan Assessment/Plan (1) Syncope and collapse: (2) Nonrheumatic aortic (valve) stenosis: (3) Non-STEMI (non-ST elevated myocardial infarction): (4) Nonobstructive atherosclerosis of coronary artery: Visit Charges Inpatient E&M: 39241 Disch Hosp
--- NOTE | 2021-02-22 10:50 | CASEMGMT ---
SW accompanied patient's to the PCU classroom. SW, records management manager, and physician were all present when physician let her know patient has passed. SW sat with patient's while she waited on her daughter to come to [facility]. SW provided emotional support. When patient's daughter arrived ABRIL and records management manager Kuldip escorted them to patient's room. Privacy was given and they were told someone will stop back by to check on them. Lizeth RAY
--- NOTE | 2021-02-22 11:20 | NURSING ---
[place] [facility] [place]
== END 2021-02-22 08:59 ==
LOC: ED 02-21 00:21 → PCU 02-21 03:29
PROVIDERS: Admitting Provider Internal Medicine; Emergency Provider Emergency Medicine; PCP Family Medicine; Visit Provider Internal Medicine
DX: I21.4 Non-ST elevation (NSTEMI) myocardial infarction (principal); I35.0 Nonrheumatic aortic (valve) stenosis; R55 Syncope and collapse; E87.6 Hypokalemia; E78.00 Pure hypercholesterolemia, unspecified; Z66 Do not resuscitate; I25.10 Atherosclerotic heart disease of native coronary artery without angina pectoris
CPT/HCPCS: 36415; 71045; 71275; 80048; 80053; 80061; 82550; 82962; 83735; 84100; 84443; 84484; 85025; 85379; 93005; 93306; 93458; 99152; 99153; 99251; 99285; J7030; J7040; Q9967; A4216; C1769; C1894; G0463